=== PATIENT | female | born 1995 | race Caucasian/White ===

== ENCOUNTER 2022-05-15 16:16 | Emergency (ER) | payer BC ==
[~2022-05-15] VITALS: Ht 167.6 cm; Wt 67.6 kg
[2022-05-15 17:08] LABS: BASOPHILS # (AUTO) 0.1 K/uL (0.0-0.2); BASOPHILS % (AUTO) 0.7 % (0.0-2.0); EOSINOPHILS % (AUTO) 2.4 % (0.0-6.0); HEMATOCRIT 34 % (33-45); HEMOGLOBIN 11.2 g/dL (11.5-14.8); LYMPHOCYTES % (AUTO) 17.6 % (20.0-44.0); MEAN CORPUSCULAR HGB CONC 33 g/dl (31.0-36.0); MEAN CORPUSCULAR VOLUME 86 fL (82-100); MONOCYTES # (AUTO) 0.6 K/uL (0.1-1.30); MONOCYTES % (AUTO) 5.1 % (2.0-12.0); NEUTROPHILS # (AUTO) 8.6 K/uL (1.8-8.9); NEUTROPHILS % (AUTO) 74.2 % (43.0-81.0); PLATELET COUNT (AUTO) 336 K/uL (150-450); RED BLOOD CELL COUNT(AUTO) 3.96 MIL/uL (4.0-5.2); WHITE BLOOD COUNT (AUTO) 11.5 K/uL (4.3-11.0)
--- NOTE | 2022-05-15 17:08 | NUR ---
urine sample collected and sent to lab
--- NOTE | 2022-05-15 17:18 | NUR ---
placed wet sterile gauze the R under breast area wound dehiscence
[2022-05-15 17:20] LABS: CALCIUM, SERUM 8.3 mg/dL (8.5-10.1); CREATININE 0.7 mg/dL (0.6-1.3); POTASSIUM 3.8 mmol/L (3.5-5.1)
[2022-05-15 17:26] LABS: ALBUMIN 3.1 g/dL (3.4-5.0); BILIRUBIN,DIRECT 0.1 mg/dL (0.0-0.2); BILIRUBIN,TOTAL 0.2 mg/dL (0.2-1.0); TOTAL PROTEIN, SERUM 6.7 g/dL (6.4-8.2)
[2022-05-15] MEDS ORDERED: AMOX/CLAVULANATE 875 MG TABLET PO ONE (17:30)
[2022-05-15] MEDS ORDERED: IV NS 0.9% 250 ML IV ONE (17:38)
[2022-05-15] MEDS ORDERED: IOHEXOL-300 100 ML VIAL IV ONE (17:38)
[2022-05-15] MEDS ORDERED: AMOX/CLAVULANATE 875 MG TABLET ONE (17:59)
[2022-05-15] MEDS ORDERED: TDAP [DIPH/PERTUSSIS/TET] 0.5 ML VIAL IM ONE ×2 (18:00→18:51)
[2022-05-15] MEDS ORDERED: AMOX-427 PO (18:59)
--- NOTE | 2022-05-15 19:16 | NUR ---
WHEELED OUT VIA [facility] FOR CT SCAN OF HEAD.
--- NOTE | 2022-05-15 19:28 | NUR ---
PT RETURNED TO ER BED [address]
--- NOTE | 2022-05-15 20:01 | NUR ---
Patient discharged to home in stable condition. Written and verbal after care instructions given. Patient verbalizes understanding of instruction.IV removed. Catheter intact and site benign. Pressure and 4x4 applied to site. No bleeding noted.
--- NOTE | 2022-05-15 20:01 | NUR ---
SLING APPLIED TO R ARM
[2022-05-16 02:30] VITALS: BP 121/73
== END 2022-05-15 20:01 | disposition home or self-care (01) ==
LOC: ER 16:58
DX: S02.2XXA Fracture of nasal bones, initial encounter for closed fracture (principal); S01.511A Laceration without foreign body of lip, initial encounter; S50.01XA Contusion of right elbow, initial encounter; S60.221A Contusion of right hand, initial encounter; T81.31XA Disruption of external operation (surgical) wound, not elsewhere classified, initial encounter; Z88.6 Allergy status to analgesic agent; V49.59XA Passenger injured in collision with other motor vehicles in traffic accident, initial encounter; Y93.89 Activity, other specified; Y92.413 State road as the place of occurrence of the external cause; Y99.8 Other external cause status
CPT/HCPCS: 99285; 72125; 71045; 90471; 90715; 73080; 73130; 70450; 70486; 74177; 85025; 80048; 83690; 80076; 84703; 36415; J7050; A6403 ×2; Q9967